=== PATIENT | female | born 1980 | race African-American/Black ===

== ENCOUNTER 2020-01-24 15:33 | Inpatient (IN) | payer SELFPAY ==
[~2020-01-24] VITALS: Ht 167.6 cm; Wt 59.9 kg
[2020-01-24] MEDS ORDERED: SODIUM CHLORIDE 0.9% 1,000 ML IV ONE (16:12)
[2020-01-24] MEDS ORDERED: KETOROLAC 30MG/ML VIAL IV STA (16:12)
[2020-01-24 16:34] LABS: HEMATOCRIT. 41.5 % (36.0-48.0); MEAN CORPUSCULAR HEMOGLOBIN 30.6 pg (28.0-32.0); MEAN CORPUSCULAR VOLUME 90.9 fL (81.0-99.0); MEAN PLATELET VOLUME 6.7 fl (7.4-10.4); PLATELET 224 x1000/uL (130-400); RED BLOOD CELL COUNT 4.56 mill/uL (4.2-5.4); RED CELL DISTRIBUTION WIDTH 15.7 % (11.6-14.6)
[2020-01-24 16:37] LABS: CHLORIDE 108 mEq/L (98-107)
[2020-01-24 16:41] LABS: INR 1.1; PROTHROMBIN TIME 11.9 sec (9.6-11.0)
[2020-01-24 17:11] LABS: PLATELET ESTIMATE NORMAL
[2020-01-24] MEDS ORDERED: ONDANSETRON HCL 4MG/2ML INJ IV ONE ×2 (17:45→20:30)
[2020-01-24 17:59] LABS: CLARITY URINE TURBID (CLEAR); COLOR URINE DARK YELLOW (YELLOW); KETONES URINE 2+ (NEGATIVE); LEUKOCYTE ESTERASE URINE 3+ (NEGATIVE); NITRITE URINE NEGATIVE (NEGATIVE); OCCULT BLOOD URINE 2+ (NEGATIVE); PROTEIN URINE 3+ (NEGATIVE); SPECIFIC GRAVITY URINE 1.022 (1.005-1.030)
[2020-01-24 18:09] LABS: HCG SCREEN NEGATIVE
[2020-01-24] MEDS ORDERED: SODIUM CHLORIDE 0.9% 1000ML BAG (SEPSIS BOLUS) IV ONE (19:30)
[2020-01-24] MEDS ORDERED: CEFTRIAXONE 1 G PREMIX 50 ML IV ONE (19:30)
[2020-01-24] MEDS ORDERED: LEVOFLOXACIN 500MG PREMIX 100 ML IV ONE (20:15)
[2020-01-24] MEDS ORDERED: TAMSULOSIN HCL 0.4MG SR CAPSULE PO ONE (20:30)
[2020-01-24] MEDS ORDERED: FENTANYL CITRATE/PF 50MCG/ML 2ML VIAL IV ONE ×2 (20:30→22:15)
[2020-01-24] MEDS ORDERED: METOCLOPRAMIDE HCL 10MG/2ML VIAL IV ONE (22:15)
[2020-01-25] MEDS ORDERED: MORPHINE SULFATE 2 MG/ML CPJ (NOT FOR IM USE) IV PRN (00:30)
[2020-01-25 03:30] VITALS: BP 133/83
[2020-01-25] MEDS ORDERED: CEFTRIAXONE 1 G PREMIX 50 ML IV SCH (03:45)
[2020-01-25] MEDS: ONDANSETRON HCL 4MG/2ML INJ IV PRN ×3 (03:50→21:22)
[2020-01-25] MEDS: MORPHINE SULFATE 4 MG/ML CPJ (NOT FOR IM USE) IV PRN ×4 (06:51→21:22)
[2020-01-25] MEDS: METOCLOPRAMIDE HCL 10MG/2ML VIAL IV PRN ×2 (07:00→17:07)
[2020-01-25] MEDS ORDERED: POTASSIUM CHLORIDE 20MEQ TABLET SR PO NR (07:30)
[2020-01-25 08:00] VITALS: BP 115/76
[2020-01-25] MEDS ORDERED: MIDAZOLAM HCL 2 MG/2 ML VIAL ONE (11:29)
[2020-01-25] MEDS ORDERED: FENTANYL CITRATE/PF 50MCG/ML 2ML VIAL ONE ×2 (11:29→13:11)
[2020-01-25] MEDS ORDERED: PROPOFOL 200MG/20ML VIAL IV ONE (11:29)
[2020-01-25] MEDS ORDERED: LIDOCAINE HCL/PF 1% 10 MG/ML 5ML VIAL ONE (11:29)
[2020-01-25 12:00] VITALS: BP 113/69
[2020-01-25 12:00] LABS: HEMOGLOBIN. 12.6 g/dL (12.0-16.0); MEAN CORPUSCULAR HEMOGLOBIN 30.8 pg (28.0-32.0); MEAN CORPUSCULAR VOLUME 90.6 fL (81.0-99.0); MEAN PLATELET VOLUME 7.4 fl (7.4-10.4); PLATELET 139 x1000/uL (130-400); RED BLOOD CELL COUNT 4.09 mill/uL (4.2-5.4)
[2020-01-25 12:39] LABS: PLATELET ESTIMATE NORMAL
[2020-01-25 12:42] LABS: CHLORIDE 103 mEq/L (98-107)
[2020-01-25] MEDS ORDERED: LEVETIRACETAM 500MG PREMIX 100 ML IV ONE (12:42)
[2020-01-25] MEDS ORDERED: DEXAMETHASONE 4MG/ML 1ML VIAL ONE (12:51)
[2020-01-25] MEDS ORDERED: ONDANSETRON HCL 4MG/2ML INJ ONE (13:00)
[2020-01-25] MEDS ORDERED: KETOROLAC 30MG/ML VIAL ONE (13:00)
[2020-01-25] MEDS ORDERED: ONDANSETRON HCL 4MG/2ML INJ IV PRN (13:00)
[2020-01-25] MEDS ORDERED: FENTANYL CITRATE/PF 50MCG/ML 2ML VIAL IV PRN (13:11)
[2020-01-25] MEDS ORDERED: MEPERIDINE HCL/PF 25MG/ML CPJ IV PRN (13:45)
[2020-01-25 16:00] VITALS: BP 103/64
[2020-01-25 20:00] VITALS: BP 152/71
[2020-01-25] MEDS ORDERED: CEFTRIAXONE 1,000 MG in DEXTROSE 5% WATER 50 ML IV SCH (21:00)
[2020-01-26] VITALS: BP 99/63
[2020-01-26] MEDS: ONDANSETRON HCL 4MG/2ML INJ IV PRN ×4 (02:09→21:25)
[2020-01-26] MEDS: MORPHINE SULFATE 4 MG/ML CPJ (NOT FOR IM USE) IV PRN ×4 (02:11→18:57)
[2020-01-26 04:00] VITALS: BP 98/58
[2020-01-26 07:49] LABS: CHLORIDE 102 mEq/L (98-107)
[2020-01-26 08:00] VITALS: BP 112/71
[2020-01-26 08:01] LABS: HEMATOCRIT. 34.1 % (36.0-48.0); HEMOGLOBIN. 11.3 g/dL (12.0-16.0); MEAN CORPUSCULAR HEMOGLOBIN 30.5 pg (28.0-32.0); MEAN CORPUSCULAR VOLUME 91.9 fL (81.0-99.0); MEAN PLATELET VOLUME 7.9 fl (7.4-10.4); PLATELET 101 x1000/uL (130-400); RED BLOOD CELL COUNT 3.71 mill/uL (4.2-5.4); RED CELL DISTRIBUTION WIDTH 15.3 % (11.6-14.6)
[2020-01-26 12:00] VITALS: BP 117/80
[2020-01-26 14:20] LABS: PLATELET ESTIMATE SLIGHTLY DECREASED
[2020-01-26] MEDS: CEFEPIME 2,000 MG in DEXT 5% WATER 100 ML IV SCH (15:23)
[2020-01-26] MEDS: MULTIVITAMINS,THER W-MINERALS TABLET PO SCH (15:23)
[2020-01-26] MEDS: HYDROCODONE/ACETAMINOPHEN 10/325MG TABLET PO PRN ×2 (15:23→21:15)
[2020-01-26 16:00] VITALS: BP 111/76
[2020-01-26] MEDS: METOCLOPRAMIDE HCL 10MG/2ML VIAL IV PRN (18:57)
[2020-01-26 20:00] VITALS: BP 126/90
[2020-01-26] MEDS ORDERED: DIPHENHYDRAMINE 50MG/ML VIAL IV PRN (21:00)
[2020-01-27] VITALS: BP 119/76
[2020-01-27] MEDS: ONDANSETRON HCL 4MG/2ML INJ IV PRN ×4 (02:23→21:09)
[2020-01-27] MEDS: MORPHINE SULFATE 4 MG/ML CPJ (NOT FOR IM USE) IV PRN ×4 (02:23→21:10)
[2020-01-27] MEDS: CEFEPIME 2,000 MG in DEXT 5% WATER 100 ML IV SCH ×2 (03:43→15:46)
[2020-01-27 04:00] VITALS: BP 122/84
[2020-01-27] MEDS: HYDROCODONE/ACETAMINOPHEN 10/325MG TABLET PO PRN ×3 (06:12→18:16)
[2020-01-27] MEDS ORDERED: ACETAMINOPHEN 325MG TABLET PO PRN (06:45)
[2020-01-27 07:14] LABS: HEMATOCRIT. 34.4 % (36.0-48.0); HEMOGLOBIN. 11.6 g/dL (12.0-16.0); MEAN CORPUSCULAR HEMOGLOBIN 30.7 pg (28.0-32.0); MEAN CORPUSCULAR VOLUME 90.8 fL (81.0-99.0); MEAN PLATELET VOLUME 8.3 fl (7.4-10.4); PLATELET 94 x1000/uL (130-400); RED BLOOD CELL COUNT 3.79 mill/uL (4.2-5.4); RED CELL DISTRIBUTION WIDTH 15.3 % (11.6-14.6)
[2020-01-27 08:00] VITALS: BP 111/73
[2020-01-27] MEDS ORDERED: DIPHENHYDRAMINE 12.5MG/5ML UDC PO PRN (08:15)
[2020-01-27] MEDS ORDERED: POTASSIUM CHLORIDE 20MEQ TABLET SR PO SCH (08:15)
[2020-01-27] MEDS: DOCUSATE SODIUM 250MG CAPSULE PO SCH ×2 (09:08→17:41)
[2020-01-27] MEDS: MULTIVITAMINS,THER W-MINERALS TABLET PO SCH (09:09)
[2020-01-27] MEDS: SODIUM CHLORIDE 0.9% 1,000 ML IV SCH (09:26)
[2020-01-27 11:35] LABS: *AMPHETAMINES SCREEN URINE NEGATIVE (NEGATIVE); *BARBITURATES SCREEN URINE NEGATIVE (NEGATIVE); *BENZODIAZEPINES SCREEN URINE NEGATIVE (NEGATIVE); *COCAINE SCREEN URINE NEGATIVE (NEGATIVE)
[2020-01-27 11:36] LABS: CANNABINOID URINE SCREEN NEGATIVE (NEGATIVE); METHADONE URINE SCREEN NEGATIVE (NEGATIVE); PHENCYCLIDINE URINE SCREEN NEGATIVE (NEGATIVE)
[2020-01-27 11:46] LABS: OPIATES URINE SCREEN PRESUMTIVE POSITIVE (NEGATIVE)
[2020-01-27 11:46] LABS: PLATELET ESTIMATE SLIGHTLY DECREASED
[2020-01-27 12:00] VITALS: BP 125/90
[2020-01-27 16:00] VITALS: BP 130/85
[2020-01-27 20:00] VITALS: BP 105/56
[2020-01-27] MEDS: AMPICILLIN SOD/SULBACTAM NA 3 G in SODIUM CHLORIDE 0.9% 100 ML IV SCH (21:09)
[2020-01-28] VITALS: BP 132/96
[2020-01-28] MEDS: ONDANSETRON HCL 4MG/2ML INJ IV PRN ×2 (03:08→09:34)
[2020-01-28] MEDS: MORPHINE SULFATE 4 MG/ML CPJ (NOT FOR IM USE) IV PRN ×3 (03:09→12:30)
[2020-01-28] MEDS: AMPICILLIN SOD/SULBACTAM NA 3 G in SODIUM CHLORIDE 0.9% 100 ML IV SCH ×2 (03:10→09:22)
[2020-01-28 04:00] VITALS: BP 133/86
[2020-01-28] MEDS: HYDROCODONE/ACETAMINOPHEN 10/325MG TABLET PO PRN ×2 (05:18→09:23)
[2020-01-28 06:24] LABS: BASOPHILS % 0.3 % (0.0-2.0); EOSINOPHILS % 0.8 % (0.0-5.0); HEMATOCRIT. 34.4 % (36.0-48.0); HEMOGLOBIN. 11.6 g/dL (12.0-16.0); LYMPHOCYTES % 8.7 % (20.0-50.0); MEAN CORPUSCULAR HEMOGLOBIN 30.7 pg (28.0-32.0); MEAN CORPUSCULAR VOLUME 91.1 fL (81.0-99.0); MEAN PLATELET VOLUME 8.5 fl (7.4-10.4); MONOCYTES % 8.6 % (2.0-8.0); NEUTROPHILS % 81.6 % (40.0-76.0); PLATELET 109 x1000/uL (130-400); RED BLOOD CELL COUNT 3.78 mill/uL (4.2-5.4); RED CELL DISTRIBUTION WIDTH 15.1 % (11.6-14.6)
[2020-01-28] MEDS: SODIUM CHLORIDE 0.9% 1,000 ML IV SCH ×2 (06:47→10:13)
[2020-01-28 08:00] VITALS: BP 119/79
[2020-01-28] MEDS: DOCUSATE SODIUM 250MG CAPSULE PO SCH (08:28)
[2020-01-28] MEDS: MULTIVITAMINS,THER W-MINERALS TABLET PO SCH (08:28)
[2020-01-28] MEDS ORDERED: POTASSIUM CHLORIDE 20MEQ TABLET SR PO NR (08:45)
[2020-01-28 12:00] VITALS: BP 116/81
[2020-01-28] MEDS ORDERED: HYDR-4009 MT (12:57)
[2020-01-28 14:53] VITALS: BP 116/81
== END 2020-01-28 15:41 | disposition home or self-care (01) | DRG 720 ==
LOC: ER 15:33 → MICUSO 20:10 → EDBEDREQTM 20:12 → EDBEDREQ 20:12 → 6EST 01-25 02:13
PROVIDERS: ADMIT Internal Medicine; ATTEND Internal Medicine
PROC: 0TF68ZZ Fragmentation in Right Ureter, Via Natural or Artificial Opening Endoscopic (ICD-10-PCS; principal; 2020-01-25)
PROC: 0T768DZ Dilation of Right Ureter with Intraluminal Device, Via Natural or Artificial Opening Endoscopic (ICD-10-PCS; 2020-01-25)
DX: A41.51 Sepsis due to Escherichia coli [E. coli] (principal); E87.6 Hypokalemia; E87.8 Other disorders of electrolyte and fluid balance, not elsewhere classified; N13.6 Pyonephrosis
CPT/HCPCS: 36415; 74021; 74176; 76705; 80048; 80053; 80305; 81003; 83605; 84703; 85025; 87077; 87186; 93005; 96374; 99291; C2617; J0295; J0692; J0696; J1100; J1200; J1885; J1953; J1956; J2175; J2250; J2270; J2405; J2704; J2765; J3010; J3490; J7030; J7050; J7060; Q0163

== ENCOUNTER 2020-01-30 15:16 | Emergency (ER) | payer SELFPAY ==
[~2020-01-30] VITALS: Ht 167.6 cm; Wt 58.0 kg
[~2020-01-30 15:16] MED LIST: HYDR-4009 MT
[2020-01-30 15:30] VITALS: BP 138/89
== END 2020-01-30 15:45 | disposition left against medical advice (07) ==
LOC: ER 15:16
DX: G89.18 Other acute postprocedural pain (principal); Z53.21 Procedure and treatment not carried out due to patient leaving prior to being seen by health care provider
CPT/HCPCS: 99281